=== PATIENT | male | born 1965 | race Asian ===

== ENCOUNTER 2025-04-24 03:19 | Emergency (ER) | payer BC ==
[~2025-04-24] VITALS: Ht 152.4 cm; Wt 65.0 kg
[2025-04-24 03:37] VITALS: BP 115/65; PULSE 62; RESP 15; O2SAT 99
--- NOTE | 2025-04-24 04:29 | Physician Documentation ---
History of Present Illness ~ Chief Complaint: Rash Stated Complaint: BODY RASH Time Seen by MD: 04:22 HPI Patient presents to the emergency room for evaluation of pruritic rash that is started over the last two days. He feels it may be poison oak as [place]. No fevers. Medication Reconciliation Allergies: Coded Allergies: No Known Allergies (Unverified , 04/24/25) Review of Systems ROS All review of systems negative except as per HPI Physical Exam Vital Signs: Temperature: 97.6, Source: Temporal, Heart Rate: 62, Respiratory Rate: 15, BP: 115/65, Pulse Oximetry: 99, Weight: 65.000 Physical Exam General: Patient is awake, alert, oriented x4 in no acute distress Head: Normocephalic and atraumatic. Eyes: Conjunctival normal. EOMI. PERRL. ENT: Mucous membranes moist. Neck: Supple, trachea is midline. Chest: Clear to auscultation bilaterally without rales, rhonchi, or wheezes. There is no accessory muscle use or retractions. Cardiac: RRR without murmurs, gallops, or rubs. Skin: Erythemic rash noted in linear streaks and forearms and some patches on lower abdomen. Progress Results/Orders Results/Orders Vital Signs 04/24/25 03:37 Temp 97.6 Pulse 62 Resp 15 B/P (MAP) 115/65 Pulse Ox 99 Medical Decision Making Additional information obtaine: N/A Findings Patient presents to the emergency room for evaluation of pruritic rash. Differe ntials include but are not limited to contact dermatitis, poison oak, viral exanthem, vasculitis. Rashes blanching and he had not believe he is suffering from vasculitis. Given distribution and characteristics of patient's rash we will treat him for that has no oak exposure. Fktc-kzp-tqvxbem remedies discussed as well as the need to avoid hot showers. Differential Dx:Considerations: Include: Abscess, AIDS/HIV, Anthrax (cutaneous), Atopic dermatitis, Candidiasis, Contact dermatitis, Drug reaction, Erythema multiforme, Erysipelas, Gangrene, Herpes zoster, Herpes simplex, Hidradenitis suppurativa, Impetigo, Intertrigo, Lymes disease, Molluscum contagiosum, Osteomyelitis, Pediculosis, Pityriasis rosea, Psoriaisis, RMSF, Rosacea, Scabies, Scarlet fever, Tinea, Urticaria, Varicella, Viral exanthema, Other Departure Disposition: 01 HOME / SELF CARE / HOMELESS Impression: Primary Impression: Poison oak Condition: Stable Discharge Instructions: Poison Rule Dermatitis, Pyfo-qj-Ewen Additional Instructions: Benadryl may be effective controlling your itching. It will make you drowsy. Mxaq-bcq-rwuryfj topical Benadryl and calamine lotion may be of benefit. Avoid hot showers. Referrals: NO PRIMARY CARE PROVIDER (PCP) Signature Scribe Signature: No scribe Attestation: The note accurately reflects work and decisions made by me.Randolph Islas MD 04/24/25 04:30 RANDOLPH ISLAS MD Apr 24, 2025 04:29
[2025-04-24] MEDS: triamcinolone acetonide 40mg/ml inj IM ONE (04:34)
[2025-04-24] MEDS: dexamethasone sod phosphate 10mg/ml inj IM STA (04:37)
[2025-04-24 05:23] VITALS: TEMP 97.6
== END 2025-04-24 05:00 | disposition home or self-care (01) ==
LOC: ER 03:21
DX: L23.7 Allergic contact dermatitis due to plants, except food (principal)
CPT/HCPCS: 96372; 99284; J1100; J3301; 99283

== ENCOUNTER 2025-04-26 12:02 | Emergency (ER) | payer BC ==
[~2025-04-26] VITALS: Ht 152.4 cm; Wt 62.8 kg
[2025-04-26 12:11] VITALS: BP 153/86; PULSE 88; RESP 17; TEMP 98.3; O2SAT 100
--- NOTE | 2025-04-26 12:42 | Physician Documentation ---
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 Benadryl with some swelling and hives to the trunk lower extremity and lower eyes patient states that he went to a gathering and had a beer last night it was concerned that it could be due to that although he has never had a reaction to a beer in the past Medication Reconciliation Allergies: Coded Allergies: No Known Allergies (Unverified , 04/26/25) Past Medical History Past Medical History: No Pertinent History Past Surgical History: noncontributory Alcohol Use: Rarely Drug Use: none Lives with: Family Lives In: Home Occupation: retired Review of Systems All Other Systems at this time: Reviewed and Negative Integumentary: Reports: see HPI Physical Exam Vital Signs: RN Vital Signs have been reviewed: Yes, Temperature: 98.3, Source: Oral, Heart Rate: 88, Respiratory Rate: 17, BP: 153/86, Pulse Oximetry: 100, Weight: 62.800 Oxygen Flow Rate: 0 Physical Exam General: Alert, no apparent distress. HEENT: moist mucous membranes. Neck: Full range of motion. Respiratory: No respiratory distress speaking in full sentences Chest: No accessory muscle use. Cardiovascular: Appears well perfused Neurologic: Oriented x4. Psychiatric: Normal mood and affect. Skin: Raised hives to the trunk generalized. Areas with clearly defined borders of erythema to lower extremities. No obvious rash to the face neck but some periorbital edema Progress Results/Orders Results/Orders Vital Signs 04/26/25 12:11 Temp 98.3 Pulse 88 Resp 17 B/P (MAP) 153/86 Pulse Ox 100 O2 Flow Rate 0 Medical Decision Making Additional information obtaine: old records Findings Prednisone taper will be ordered as the rash does appear to be diffuse. They did not moss picker [id number] Benadryl as previously stated in the discharge paperwork when he received a Kenalog injection. Discussed creams calamine to spot treat. Follow up with primary Differential Dx:Considerations: Include: Other Departure Time of Disposition: 12:40 Disposition: 01 HOME / SELF CARE / HOMELESS Impression: Primary Impression: Urticaria Additional Impression: Poison oak Condition: Stable Discharge Instructions: Hives Additional Instructions: Prednisone and Benadryl as prescribed and follow up with primary care urgent care in 1 week Referrals: NO PRIMARY CARE PROVIDER (PCP) Prescriptions Triamcinolone Acetonide 0.5% Crm* (Kenalog 0.5% Crm*) 15 Gm Tube 1 APPLIC TOP Q12H for 30 Days, #30 GM apply to affected area(s) Prov: VIJAYA PINEDA NP 04/26/25 Diphenhydramine Hcl (Benadryl) 25 Mg Capsule 1 CAP PO HS for 30 Days, #30 CAP 0 Refills Prov: VIJAYA PINEDA NP 04/26/25 Prednisone (Prednisone) 10 Mg Tablet 0 PO DAILY, #42 TAB Take 4 tabs daily x4 days, then 3 daily x4 days 2 daily x4 days 1 daily x4 days 1/2 daily x4 days then STOP Prov: VIJAYA PINEDA NP 04/26/25 Education Educated: Patient Educated regarding: diagnosis, treatment, need for follow up Signature Scribe Signature: No scribe Attestation: The note accurately reflects work and decisions made by me.Vijaya Pineda - BHUPENDRA 04/26/25 12:44 VIJAYA PINEDA NP Apr 26, 2025 12:42
[2025-04-26] MEDS ORDERED: TRIA15CR61 TOP (12:44)
[2025-04-26] MEDS ORDERED: PRED10TA23 PO (12:44)
[2025-04-26] MEDS ORDERED: DIPH25CA83 PO (12:44)
== END 2025-04-26 12:55 | disposition home or self-care (01) ==
LOC: ER 12:02
DX: L23.7 Allergic contact dermatitis due to plants, except food (principal)
CPT/HCPCS: 99283